=== PATIENT | female | born 1955 | race Two or more races ===

== ENCOUNTER 2022-01-23 12:02 | Emergency (ER) | payer MEDICARE ==
[2022-01-23] MEDS ORDERED: Ketorolac 30 MG/ML SDV IM ONE (12:24)
[2022-01-23] MEDS ORDERED: HYDROmorphone 1 MG/ML Syringe IM ONE (12:24)
[2022-01-23] MEDS ORDERED: Sodium Chloride 0.9% 10 ML Syringe FLUSH PRN (12:58)
[2022-01-23] MEDS ORDERED: HYDROmorphone 0.5 MG/0.5 ML Syringe IVPUSH ONE (13:28)
[2022-01-23] MEDS ORDERED: Propofol 200 MG/20 ML SDV ONE (14:10)
== END 2022-01-23 15:09 | disposition home or self-care (01) ==
LOC: JP.ED 12:02
DX: S43.015A Anterior dislocation of left humerus, initial encounter (principal); Z88.2 Allergy status to sulfonamides; Z88.0 Allergy status to penicillin; Z91.013 Allergy to seafood; Z88.8 Allergy status to other drugs, medicaments and biological substances; Z79.84 Long term (current) use of oral hypoglycemic drugs; W19.XXXA Unspecified fall, initial encounter
CPT/HCPCS: 23650; 73020; 73030; 96372; 96374; 99283; J1170; J1885; J2704

== ENCOUNTER 2024-01-05 08:28 | Day surgery (SDC) | payer MEDICARE ==
[~2024-01-05 08:28] MED LIST: Midazolam 1 MG/ML 2 ML SDV ONE; Propofol 200 MG/20 ML SDV ONE; fentaNYL 100 MCG/2 ML SDV ONE
[2024-01-05 08:59] LABS: BASOPHILS ABSOLUTE AUTO 0.03 K/uL (0.00-0.10); BASOPHILS PERCENT AUTO 0.6 % (0.1-1.3); EOSINOPHILS ABSOLUTE AUTO 0.37 K/uL (0.00-0.40); EOSINOPHILS PERCENT AUTO 6.9 % (0.0-5.4); HEMATOCRIT 38.3 % (34.3-46.0); IMMATURE GRAN PERCENT AUTO 0.2 % (0.0-0.7); LYMPHOCYTES ABSOLUTE AUTO 1.85 K/uL (0.8-3.3); LYMPHOCYTES PERCENT AUTO 34.4 % (11.4-47.7); MEAN CORPUSCULAR HEMOGLOBIN 30.7 pg (31.6-35.5); MEAN CORPUSCULAR HGB CONC 33.9 g/dL (31.6-35.5); MEAN CORPUSCULAR VOLUME 90.5 fL (81.4-99.0); MONOCYTES ABSOLUTE AUTO 0.53 K/uL (0.20-0.90); MONOCYTES PERCENT AUTO 9.9 % (3.3-12.6); NEUTROPHILS ABSOLUTE AUTO 2.59 K/uL (1.0-7.6); PLATELET COUNT,PLT 206 K/uL (130-375); RED BLOOD CELL COUNT 4.23 M/uL (3.77-5.24); WHITE BLOOD CELL COUNT,WBC 5.4 K/uL (3.2-11.0)
[2024-01-05 09:01] LABS: IMMATURE GRAN ABSOLUTE AUTO 0.01 K/uL (0.00-0.23)
[2024-01-05 09:13] LABS: ANION GAP 9.6 mmol/L (5.0-14.0); BLOOD UREA NITROGEN,BUN 13 mg/dL (7-18); CALCIUM 9.8 mg/dL (8.5-10.1); CARBON DIOXIDE,CO2 28 mmol/L (21-32); CHLORIDE,CL 104 mmol/L (100-108); CREATININE 0.8 mg/dL (0.6-1.0); ESTIMATED GFR 80 mL/min (>60); GLUCOSE RANDOM 136 mg/dL (74-106); POTASSIUM,K 3.8 mmol/L (3.6-5.2); SODIUM,NA 142 mmol/L (140-148)
[2024-01-05] MEDS: Nozin Nasal Sanitizer NASBOTH ONE (09:23)
[2024-01-05] MEDS: Lactated Ringers 1,000 ML IV SCH (09:41)
[2024-01-05] MEDS: ceFAZolin 2 GM in Premix Bag 1 BAG IV ONE (10:15)
[2024-01-05] MEDS ORDERED: Propofol 200 MG/20 ML SDV ONE (10:36)
[2024-01-05] MEDS ORDERED: fentaNYL 100 MCG/2 ML SDV ONE (10:39)
== END 2024-01-05 14:45 | disposition home or self-care (01) ==
LOC: JP.SDS 08:28
PROVIDERS: ATTEND Specialist
DX: M75.101 Unspecified rotator cuff tear or rupture of right shoulder, not specified as traumatic (principal); S43.401A Unspecified sprain of right shoulder joint, initial encounter; E11.9 Type 2 diabetes mellitus without complications; F33.40 Major depressive disorder, recurrent, in remission, unspecified; E78.2 Mixed hyperlipidemia; Z79.899 Other long term (current) drug therapy; Z88.2 Allergy status to sulfonamides; Z88.8 Allergy status to other drugs, medicaments and biological substances; X58.XXXA Exposure to other specified factors, initial encounter
CPT/HCPCS: 01630; 29827; 36415; 80048; 85025; 93005; 93010; A9270; C1713; J0690; J2250; J2704; J3010; J7120